=== PATIENT | female | born 1965 | race African-American/Black ===

== ENCOUNTER 2017-07-03 21:16 | Inpatient (IN) | payer MEDICAID ==
[~2017-07-03] VITALS: Ht 167.6 cm; Wt 56.9 kg
[2017-07-03] MEDS ORDERED: SODIUM CHLORIDE 0.9% 1,000 ML IV ONE (23:34)
[2017-07-03 23:51] LABS: BASOPHILS % 0.6 % (0.0-2.0); EOSINOPHILS % 0.7 % (0.0-5.0); HEMATOCRIT. 38.1 % (36.0-48.0); HEMOGLOBIN. 12.8 g/dL (12.0-16.0); LYMPHOCYTES % 18.8 % (20.0-50.0); MEAN CORPUSCULAR HEMOGLOBIN 30.3 pg (28.0-32.0); MEAN CORPUSCULAR VOLUME 89.9 fL (81.0-99.0); MEAN PLATELET VOLUME 8.7 fl (7.4-10.4); MONOCYTES % 6.7 % (2.0-8.0); NEUTROPHILS % 73.2 % (40.0-76.0); PLATELET 163 x1000/uL (130-400); RED BLOOD CELL COUNT 4.23 mill/uL (4.2-5.4); RED CELL DISTRIBUTION WIDTH 12.8 % (11.6-14.6)
[2017-07-04] VITALS (7 sets, daily range): BP systolic 101–133; BP diastolic 47–75
[2017-07-04 00:10] LABS: CARBON DIOXIDE 26 mEq/L (21-32); CHLORIDE 107 mEq/L (98-107); CREATINE KINASE 108 IU/L (26-192); ETHANOL BLOOD < 10 mg/dL; TROPONIN I < 0.02 ng/mL (0.00-0.04)
[2017-07-04] MEDS ORDERED: ASPIRIN 81MG TABLET PO SCH (00:12)
[2017-07-04 00:45] LABS: AMMONIA 26 uMol/L (<32)
[2017-07-04] MEDS ORDERED: CLONIDINE 0.1MG TABLET PO PRN (01:15)
[2017-07-04] MEDS ORDERED: IPRATROPIUM/ALBUTEROL 0.5-3(2.5)MG/3ML NEB INH PRN (01:15)
[2017-07-04] MEDS ORDERED: ONDANSETRON HCL 4MG/2ML VIAL IV PRN (01:15)
[2017-07-04] MEDS ORDERED: MAGNESIUM/ALUMINUM HYDROXIDE/SIMETHICONE 30ML UDC PO PRN (01:15)
[2017-07-04] MEDS ORDERED: ACETAMINOPHEN 325MG TABLET PO PRN (01:15)
[2017-07-04] MEDS ORDERED: DOCUSATE SODIUM 100MG CAPSULE PO PRN (01:15)
[2017-07-04 01:49] LABS: CLARITY URINE CLEAR (CLEAR); COLOR URINE YELLOW (YELLOW); GLUCOSE URINE NEGATIVE (NEGATIVE); KETONES URINE NEGATIVE (NEGATIVE); LEUKOCYTE ESTERASE URINE TRACE (NEGATIVE); NITRITE URINE NEGATIVE (NEGATIVE); OCCULT BLOOD URINE NEGATIVE (NEGATIVE); PH URINE 5.5 (4.5-8.0); PROTEIN URINE NEGATIVE (NEGATIVE); SPECIFIC GRAVITY URINE 1.015 (1.005-1.030); UROBILINOGEN URINE 0.2 E.U./dL (0.2-1.0)
[2017-07-04 02:17] LABS: *AMPHETAMINES SCREEN URINE NEGATIVE (NEGATIVE); *BARBITURATES SCREEN URINE NEGATIVE (NEGATIVE); *BENZODIAZEPINES SCREEN URINE NEGATIVE (NEGATIVE); *COCAINE SCREEN URINE NEGATIVE (NEGATIVE); CANNABINOID URINE SCREEN PRESUMTIVE POSITIVE (NEGATIVE); METHADONE URINE SCREEN NEGATIVE (NEGATIVE); OPIATES URINE SCREEN NEGATIVE (NEGATIVE); PHENCYCLIDINE URINE SCREEN NEGATIVE (NEGATIVE)
[2017-07-04] MEDS: SODIUM CHLORIDE 0.9% 1,000 ML IV SCH (03:05)
[2017-07-04 07:02] LABS: BASOPHILS % 0.4 % (0.0-2.0); HEMATOCRIT. 36.6 % (36.0-48.0); HEMOGLOBIN. 12.4 g/dL (12.0-16.0); LYMPHOCYTES % 24.1 % (20.0-50.0); MEAN CORPUSCULAR HEMOGLOBIN 30.6 pg (28.0-32.0); MEAN CORPUSCULAR VOLUME 90.5 fL (81.0-99.0); MEAN PLATELET VOLUME 9.3 fl (7.4-10.4); MONOCYTES % 8.7 % (2.0-8.0); NEUTROPHILS % 65.8 % (40.0-76.0); PLATELET 142 x1000/uL (130-400); RED BLOOD CELL COUNT 4.04 mill/uL (4.2-5.4)
[2017-07-04] MEDS: ENOXAPARIN 40MG/0.4ML SYR SUBCUT SCH ×2 (07:14→09:00)
[2017-07-04 08:20] LABS: CARBON DIOXIDE 25 mEq/L (21-32); CHLORIDE 111 mEq/L (98-107); HDL CHOLESTEROL 62 mg/dL (40-59); LDL CHOLESTEROL 99 mg/dL (5-100); TROPONIN I < 0.02 ng/mL (0.00-0.04)
[2017-07-04] MEDS: ASPIRIN 81MG EC TABLET PO SCH (08:56)
[2017-07-05] VITALS: BP 112/54
[2017-07-05 00:05] VITALS: BP 112/54
[2017-07-05 04:00] VITALS: BP_SYST 111; BP_SYST 121; BP_DIAS 61; BP_DIAS 71
[2017-07-05 07:28] LABS: BASOPHILS % 0.5 % (0.0-2.0); EOSINOPHILS % 1.7 % (0.0-5.0); HEMATOCRIT. 37.3 % (36.0-48.0); HEMOGLOBIN. 12.5 g/dL (12.0-16.0); MEAN CORPUSCULAR HEMOGLOBIN 30.4 pg (28.0-32.0); MEAN CORPUSCULAR VOLUME 90.5 fL (81.0-99.0); MEAN PLATELET VOLUME 9.5 fl (7.4-10.4); MONOCYTES % 8.5 % (2.0-8.0); NEUTROPHILS % 58.3 % (40.0-76.0); PLATELET 142 x1000/uL (130-400); RED BLOOD CELL COUNT 4.12 mill/uL (4.2-5.4); RED CELL DISTRIBUTION WIDTH 12.7 % (11.6-14.6)
[2017-07-05 08:00] VITALS: BP 125/54
[2017-07-05 09:01] LABS: CARBON DIOXIDE 24 mEq/L (21-32); CHLORIDE 110 mEq/L (98-107)
[2017-07-05] MEDS: ASPIRIN 81MG EC TABLET PO SCH (09:01)
[2017-07-05] MEDS: SODIUM CHLORIDE 0.9% 1,000 ML IV SCH (09:02)
[2017-07-05] MEDS: ENOXAPARIN 40MG/0.4ML SYR SUBCUT SCH (09:19)
[2017-07-05 11:20] VITALS: BP 125/54
== END 2017-07-05 13:20 | disposition home or self-care (01) | DRG 48 ==
LOC: ER 23:43 → ENRESERV 07-04 00:16 → EDBEDREQ 07-04 00:44 → 7WST 07-04 01:13
PROVIDERS: ADMIT Internal Medicine; ATTEND Internal Medicine
DX: G90.8 Other disorders of autonomic nervous system (principal); E83.51 Hypocalcemia; I10 Essential (primary) hypertension; N39.0 Urinary tract infection, site not specified; F17.200 Nicotine dependence, unspecified, uncomplicated; F12.90 Cannabis use, unspecified, uncomplicated; J44.9 Chronic obstructive pulmonary disease, unspecified; N95.1 Menopausal and female climacteric states; Z86.79 Personal history of other diseases of the circulatory system
CPT/HCPCS: 36415; 70450; 70551; 71010; 80048; 80053; 80061; 80305; 81001; 82140; 82550; 82553; 83605; 83690; 83735; 83880; 84443; 84484; 85025; 93005; 93306; 93970; 97162; 99291; G0482; J1650; J7030

== ENCOUNTER 2017-10-13 12:28 | Emergency (ER) | payer MEDICAID ==
[~2017-10-13] VITALS: Ht 162.6 cm; Wt 64.0 kg
[2017-10-13] MEDS ORDERED: SODIUM CHLORIDE 0.9% 1,000 ML IV ONE (13:18)
[2017-10-13] MEDS ORDERED: ONDANSETRON HCL 4MG/2ML VIAL IV STA (13:18)
[2017-10-13] MEDS ORDERED: KETOROLAC 30MG/ML VIAL IV STA (13:18)
[2017-10-13 16:22] VITALS: BP 106/69
== END 2017-10-13 16:23 | disposition home or self-care (01) ==
LOC: ER 13:12
DX: B34.9 Viral infection, unspecified (principal); F17.200 Nicotine dependence, unspecified, uncomplicated; F12.10 Cannabis abuse, uncomplicated
CPT/HCPCS: 71010; 87804; 96361; 96374; 96375; 99285; J1885; J2405; J7030; Z7610

== ENCOUNTER 2024-05-08 07:19 | Emergency (ER) | payer MEDICAID ==
[~2024-05-08] VITALS: Ht 170.2 cm; Wt 64.0 kg
[2024-05-08 07:22] VITALS: O2SAT 100
[2024-05-08 08:04] LABS: BASOPHILS % 0.8 % (0.0-2.0); EOSINOPHILS % 0.9 % (0.0-5.0); HEMATOCRIT. 40.2 % (36.0-48.0); HEMOGLOBIN. 13.2 g/dL (12.0-16.0); LYMPHOCYTES % 14.8 % (20.0-50.0); MEAN CORPUSCULAR HEMOGLOBIN 30.5 pg (28.0-32.0); MEAN CORPUSCULAR HGB CONC 32.9 g/dL (31.0-37.0); MEAN CORPUSCULAR VOLUME 92.6 fL (81.0-99.0); MEAN PLATELET VOLUME 8.4 fl (7.4-10.4); MONOCYTES % 8.1 % (2.0-8.0); NEUTROPHILS % 75.4 % (40.0-76.0); PLATELET 163 x1000/uL (130-400); RED BLOOD CELL COUNT 4.34 mill/uL (4.2-5.4); RED CELL DISTRIBUTION WIDTH 12.9 % (11.6-14.6); WHITE BLOOD COUNT 5.5 x1000/uL (4.5-11.0)
[2024-05-08 08:16] LABS: CHLORIDE 110 mEq/L (98-107); POTASSIUM 3.9 mEq/L (3.5-5.1); SODIUM 139 mEq/L (136-145)
[2024-05-08 08:18] LABS: CALCIUM 8.9 mg/dL (8.7-10.4); CARBON DIOXIDE 27 mEq/L (21-32)
[2024-05-08 08:23] LABS: CREATININE 0.8 mg/dL (0.6-1.0); GLUCOSE 83 mg/dL (70-105); UREA NITROGEN BLOOD 7 mg/dL (9-23)
[2024-05-08 08:25] LABS: ALANINE AMINOTRANSFERASE 18 IU/L (10-49); ALBUMIN 4.2 g/dL (3.2-4.8); ASPARTATE AMINOTRANSFERASE 23 IU/L (<34); BILIRUBIN DIRECT 0.1 mg/dL (<=3.0); BILIRUBIN TOTAL 0.5 mg/dL (0.1-1.0)
[2024-05-08 08:34] LABS: PROTHROMBIN TIME 10.7 sec (9.6-11.0)
[2024-05-08] MEDS: SODIUM CHLORIDE 0.9% 1,000 ML IV ONE (09:04)
[2024-05-08] MEDS: ONDANSETRON HCL 4MG/2ML INJ IV STA (09:04)
[2024-05-08] MEDS ORDERED: ONDA4TAB50 PO (10:32)
[2024-05-08 11:48] VITALS: BP 40/79; PULSE 56; RESP 15; TEMP 97.9
== END 2024-05-08 11:50 | disposition home or self-care (01) ==
LOC: ER 07:19
DX: B34.9 Viral infection, unspecified (principal); F12.90 Cannabis use, unspecified, uncomplicated; E78.00 Pure hypercholesterolemia, unspecified; I72.9 Aneurysm of unspecified site; Z98.890 Other specified postprocedural states
CPT/HCPCS: 80076; 80048; 83690; 85025; 85610; 36415; 71045; 96361; 96374; 99284; J2405; J7030; Z7610 ×3

== ENCOUNTER 2024-09-03 08:48 | Emergency (ER) | payer BC, MEDICAID ==
[~2024-09-03] VITALS: Ht 165.1 cm; Wt 67.0 kg
[~2024-09-03 08:48] MED LIST: ONDA4TAB50 PO
[2024-09-03 08:49] VITALS: TEMP 99; O2SAT 92
[2024-09-03] MEDS: ONDANSETRON HCL 4MG/2ML INJ IV ONE (09:58)
[2024-09-03] MEDS: SODIUM CHLORIDE 0.9% 1,000 ML IV ONE (09:58)
[2024-09-03] MEDS: FAMOTIDINE 20MG/2ML VIAL IV ONE (09:58)
[2024-09-03 09:59] LABS: BASOPHILS % 0.8 % (0.0-2.0); EOSINOPHILS % 1.3 % (0.0-5.0); HEMATOCRIT. 39.1 % (36.0-48.0); HEMOGLOBIN. 12.4 g/dL (12.0-16.0); LYMPHOCYTES % 10.1 % (20.0-50.0); MEAN CORPUSCULAR HEMOGLOBIN 29.5 pg (28.0-32.0); MEAN CORPUSCULAR HGB CONC 31.8 g/dL (31.0-37.0); MEAN CORPUSCULAR VOLUME 92.8 fL (81.0-99.0); MEAN PLATELET VOLUME 8.8 fl (7.4-10.4); MONOCYTES % 11.5 % (2.0-8.0); NEUTROPHILS % 76.3 % (40.0-76.0); PLATELET 150 x1000/uL (130-400); RED BLOOD CELL COUNT 4.21 mill/uL (4.2-5.4); WHITE BLOOD COUNT 5.5 x1000/uL (4.5-11.0)
[2024-09-03 10:27] LABS: CARBON DIOXIDE 24 mEq/L (21-32); CHLORIDE 107 mEq/L (98-107); INR 0.9; PARTIAL THROMBOPLASTIN TIME 26.8 sec (23.4-31.0); POTASSIUM 4.2 mEq/L (3.5-5.1); PROTHROMBIN TIME 10.3 sec (9.6-11.0); SODIUM 137 mEq/L (136-145)
[2024-09-03 10:28] LABS: CALCIUM 8.9 mg/dL (8.7-10.4)
[2024-09-03 10:32] LABS: CREATININE 0.8 mg/dL (0.6-1.0)
[2024-09-03 10:33] LABS: GLUCOSE 89 mg/dL (70-105); UREA NITROGEN BLOOD 9 mg/dL (9-23)
[2024-09-03 11:11] LABS: TROPONIN I HIGH SENSITIVITY < 4 ng/L (3.0-34)
[2024-09-03 14:30] VITALS: O2SAT 99
[2024-09-03 14:50] VITALS: BP 135/75; PULSE 81; RESP 30
[2024-09-03] MEDS: KETOROLAC 30MG/ML VIAL IV ONE (14:50)
== END 2024-09-03 15:28 | disposition short-term general hospital (02) ==
LOC: ER 08:58 → EDBEDREQ 11:47 → EDBEDREQTM 11:47 → CANBEDREQ 12:26 → ER 15:28
DX: R55 Syncope and collapse (principal); Z86.79 Personal history of other diseases of the circulatory system
CPT/HCPCS: 99291; 96374; 96361; 70450; 96375; 80048; 83880; 85025; 85610; 85730; 84484; 36415; 71045; 93005; J3490; J1885; J2405; J7030